=== PATIENT | female | born 1950 | race Caucasian/White ===

== ENCOUNTER → 2016-06-16 | Outpatient (CLI) | payer OTHER | LOC: KOH-I 14:29 | DX: R41.82 Altered mental status, unspecified (principal) | CPT/HCPCS: 93880 ==

== ENCOUNTER → 2016-06-18 | Outpatient (CLI) | payer OTHER | LOC: MRI 09:24 | DX: R41.82 Altered mental status, unspecified (principal); Z86.73 Personal history of transient ischemic attack (TIA), and cerebral infarction without residual deficits; I63.8 Other cerebral infarction | CPT/HCPCS: 36415; 70553; 82565; 84520; A9577 ==